=== PATIENT | female | born 1970 ===

== ENCOUNTER 2022-02-12 05:52 | Day surgery (SDC) | payer OTHER ==
[~2022-02-12] VITALS: Ht 167.6 cm; Wt 132.1 kg
[2022-02-12] VITALS (7 sets, daily range): BP systolic 126–186; BP diastolic 63–81; PULSE 67–83; TEMP 98.3–98.5
[2022-02-12] MEDS ORDERED: PRINIVIL40 MG PO (06:15)
[2022-02-12] MEDS ORDERED: NORCO 325 MG-51 TAB PO (07:19)
--- NOTE | 2022-02-12 09:30 | NUR ---
The patient arrived back to [facility] from the recovery room. The patient appears alert and oriented and reports minimal pain in her mid back at this time. The patient denies any nausea at this time and agrees to try some ice chips. The patient has 5 bandaids to his abdomen that appear clean, dry and intact. Post operative vital signs were started at this time. The patient's was brought back to be at her bedside. Call light is within reach. Denies any further needs at this time.
--- NOTE | 2022-02-12 09:45 | NUR ---
The patient appears to be tolerating the ice chips well and denies wanting anything further to eat or drink at this time.
--- NOTE | 2022-02-12 10:00 | NUR ---
The patient's vital signs appear stable. remains at her bedside. Call light is within reach. Will continue to monitor the patient.
--- NOTE | 2022-02-12 10:15 | NUR ---
The patient agrees to try some jello and ice water at this time. Vital signs remain stable. Call light is within reach. Denies any further needs.
--- NOTE | 2022-02-12 10:40 | NUR ---
The patient appeared to tolerate the food and drink well and voices a desire to ambulate to the bathroom. The nurse instructed the patient that if she is able to void she can get dressed and notify the staff when she is ready to review her discharge paperwork.
--- NOTE | 2022-02-12 10:52 | NUR ---
Discharge instructions were reviewed with the patient and her at this time. They both verbalized understanding and have no questions for the nurse at this time. The patient's IV to left hand was removed and a pressure dressing was applied to the site. The patient is dressed and ready to be escorted out.
--- NOTE | 2022-02-12 11:00 | NUR ---
The patient was escorted out via wheelchair to a private vehicle by [employer]. The patient's belongings and discharge paperwork were sent with her. The patient's is present to drive her home.
== END 2022-02-12 11:00 | disposition home or self-care (01) ==
LOC: SDCO 05:52
DX: K80.10 Calculus of gallbladder with chronic cholecystitis without obstruction (principal); E66.01 Morbid (severe) obesity due to excess calories
CPT/HCPCS: J0330; J0690; J1100; J1885; J2250; J2405; J2704; J3010; J7120